=== PATIENT | female | born 1975 | race Caucasian/White ===

== ENCOUNTER → 2020-04-30 15:13 | Outpatient (BNVA) | payer MEDICARE, MEDICAID, SELFPAY | PROVIDERS: Family Provider Counselor Professional; Visit Provider Specialist | DX: G43.009 Migraine without aura, not intractable, without status migrainosus (principal); G24.5 Blepharospasm; F17.210 Nicotine dependence, cigarettes, uncomplicated | CPT/HCPCS: 99204 ==

== ENCOUNTER 2020-05-11 10:57 | Outpatient (CLI) | payer MEDICARE, MEDICAID, SELFPAY ==
--- NOTE | 2020-05-11 11:00 | MR_ITS ---
WS: [id number] MRI HEAD WITHOUT CONTRAST TECHNIQUE: Sagittal T1, T2 axial, T2 axial FLAIR, axial and coronal T1 images, axial susceptibility w eighted imaging, axial diffusion weighted images, and coronal T2 images were obtained. CLINICAL INFORMATION: G43.709 - Chronic migraine without aura, not intractable, without status migrai nosus COMPARISON: FINDINGS: No evidence of restricted diffusion to suggest acute. Ventricular system and basal cisterns are paten t. No suspicious intracranial signal abnormalities. Normal mahajan-white differentiation. Normal posteri or fossa. Normal vascular flow voids at the skull base. No extra-axial fluid collections. No evidence of mass or mass effect. No hemosiderin on susceptibly weighted images. Normal optic chiasm and pituitary infundibulum. Tempor al lobes and hippocampal formations are normal in appearance. Paranasal sinuses and mastoid air cells well aerated. MR/MR head wo con* [id number] IMPRESSION: 1. No evidence of restricted diffusion to suggest acute ischemia. 2. No suspicious intracranial signal abnormalities. Normal mahajan-white differen tiation. 3. Normal posterior fossa and brainstem structures. 4. Temporal lobes and hippocampal formations are normal in appearance. 5. Normal optic chiasm and pituitary infundibulum. 6. No hemosiderin on susceptibly weighted images. 7. No other significant findings. Overall no significant changes since 2012.
== END 2020-05-11 10:58 | disposition home or self-care (01) ==
LOC: RADSHAW 11:02
PROVIDERS: Family Provider Counselor Professional; PCP Nurse Practitioner Family; Visit Provider Specialist
DX: G43.709 Chronic migraine without aura, not intractable, without status migrainosus (principal)
CPT/HCPCS: 70551

== ENCOUNTER → 2021-02-24 10:37 | Outpatient (BNVA) | payer MEDICARE, MEDICAID, SELFPAY | PROVIDERS: Family Provider Counselor Professional; PCP Nurse Practitioner Family; Visit Provider Internal Medicine | DX: E11.40 Type 2 diabetes mellitus with diabetic neuropathy, unspecified (principal); E11.65 Type 2 diabetes mellitus with hyperglycemia; F17.210 Nicotine dependence, cigarettes, uncomplicated; Z79.4 Long term (current) use of insulin | CPT/HCPCS: 99204 ==

== ENCOUNTER → 2022-03-09 13:00 | Outpatient (BNVA) | payer MEDICARE, MEDICAID, SELFPAY | PROVIDERS: Family Provider Counselor Professional; PCP Nurse Practitioner Family; Referring Provider Nurse Practitioner Family; Visit Provider Internal Medicine | DX: E11.40 Type 2 diabetes mellitus with diabetic neuropathy, unspecified (principal); E11.65 Type 2 diabetes mellitus with hyperglycemia; E78.2 Mixed hyperlipidemia; Z79.4 Long term (current) use of insulin; Z79.84 Long term (current) use of oral hypoglycemic drugs | CPT/HCPCS: 99214 ==